=== PATIENT | male | born 1970 | race Caucasian/White ===

== ENCOUNTER 2018-09-17 09:52 | Emergency (ER) | payer OTHER, MEDICAID ==
[~2018-09-17] VITALS: Ht 185.4 cm; Wt 102.1 kg
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
[2018-09-17 09:57] VITALS: BP_SYST 132
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
--- NOTE | 2018-09-17 10:45 | NUR ---
ER Dr. Estevez at bedside examining patient.
--- NOTE | 2018-09-17 10:48 | NUR ---
Patient moved to ER room 8
--- NOTE | 2018-09-17 12:10 | NUR ---
Khoa wrap applied to left knee. posterior tibial pulse noted. Capillary refill <3 seconds. Patient has ability to move knee. Has sensation present to affected site. Skin color within normal limits. Applied for pain management control.
[2018-09-17 13:05] VITALS: BP_SYST 129
--- NOTE | 2018-09-17 13:05 | NUR ---
Patient given written and verbal discharge instructions and verbalizes understanding. ER MD discussed with patient the results and treatment provided. Patient in stable condition. ID arm band removed. Rx of motrin 800mg given. Opportunity for questions provided and answered. Medication side effect fact sheet provided.
== END 2018-09-17 13:05 | disposition home or self-care (01) ==
LOC: SED 09:52
DX: S80.12XA Contusion of left lower leg, initial encounter (principal); I10 Essential (primary) hypertension; Z90.49 Acquired absence of other specified parts of digestive tract; V43.62XA Car passenger injured in collision with other type car in traffic accident, initial encounter; Y93.89 Activity, other specified; Y92.410 Unspecified street and highway as the place of occurrence of the external cause; Y99.8 Other external cause status
CPT/HCPCS: 99283